=== PATIENT | male | born 1965 | race Caucasian/White ===

== ENCOUNTER 2017-09-27 19:11 | Emergency (ER) | payer OTHER ==
[2017-09-27 19:46] VITALS: BP 115/75; PULSE 80; RESP 20; TEMP 98; O2SAT 98
[2017-09-27] MEDS: Dexamethasone 4 mg/1 ml IM STA (20:29)
[2017-09-27] MEDS ORDERED: Dexamethasone 4 mg/1 ml ONE (20:30)
--- NOTE | 2017-09-27 21:01 | C.PDOC ---
History Of Present Illness 52 y/o male presents to the ED with left-sided shoulder pain for the past 4 days. Reports the pain starts from the posterior neck and radiates down the left arm. Pain worsens with movement and is described as sharp. [place]. He denies any chest pain, SOB, numbness, weakness, or tingling. Time Seen by Provider: 09/27/17 19:50 Chief Complaint (Nursing): Upper Extremity Problem/Injury History Per: Patient History/Exam Limitations: no limitations Onset/Duration Of Symptoms: Days Current Symptoms Are (Timing): Still Present Quality: Sharp Exacerbating Factor(s): Movement Past Medical History Reviewed: Historical Data, Nursing Documentation, Vital Signs Vital Signs: Last Vital Signs Temp 98 F 09/27/17 19:42 Pulse 80 09/27/17 19:42 Resp 20 09/27/17 21:27 BP 115/75 09/27/17 19:42 Pulse Ox 98 09/27/17 21:21 - Medical History PMH: HTN Family History: States: No Known Family Hx - Social History Hx Alcohol Use: No Hx Substance Use: No Review Of Systems Except As Marked, All Systems Reviewed And Found Negative. Cardiovascular: Negative for: Chest Pain Respiratory: Negative for: Shortness of Breath Musculoskeletal: Positive for: Neck Pain, Shoulder Pain, Arm Pain Neurological: Negative for: Weakness, Numbness, Other (tingling) Physical Exam - Physical Exam Appears: Non-toxic, No Acute Distress Skin: Normal Color, Warm, Dry Head: Atraumatic, Normacephalic Eye(s): bilateral: Normal Inspection Oral Mucosa: Moist Neck: No Midline Cervical Tenderness, Paracervical Tenderness (Left-sided paracervical tenderness and spasm), Supple Chest: Symmetrical Cardiovascular: Rhythm Regular, No Murmur Respiratory: Normal Breath Sounds, No Rales, No Rhonchi, No Wheezing Extremity: Normal ROM (with full ROM of the left shoulder and elbow), No Tenderness, Capillary Refill (< 2 sec), No Deformity, No Swelling Pulses: Left Radial: Normal, Right Radial: Normal Neurological/Psych: Oriented x3, Normal Speech, Normal Motor, Normal Sensation Gait: Steady ED Course And Treatment O2 Sat by Pulse Oximetry: 98 (RA) Pulse Ox Interpretation: Normal - Other Rad C-spine X-Ray X-Ray: Interpreted by Me, Viewed By Me Interpretation: (-) fracture or acute bony abnormality Medical Decision Making Medical Decision Making: Plan: --Cervical spine x-ray --Toradol 30 mg IM --Decadron 4 mg IM --Reassessment and disposition On re-exam, the patient reports improvement of symptoms. Lungs are CTA, heart is RRR, abdomen is soft, non-tender and tolerating Po well. Follow up with the medical doctor within 1-2 days without fail. Return if worsened. Disposition - Disposition Referrals: Mason Howard MD [Non-Staff] - Disposition: HOME/ ROUTINE Disposition Time: 21:18 Condition: STABLE Additional Instructions: Follow up with the medical doctor within 1-2 days without fail. Return if worsened. Prescriptions: Cyclobenzaprine [Flexeril] 5 mg PO TID #21 tab Naproxen [Naprosyn] 500 mg PO BID #20 tab Instructions: Cervical Muscle Strain (DC) Forms: [facility] ([place]), Work Excuse - Clinical Impression Clinical Impression: Cervical radiculopathy - PA / [employer] / Resident Statement MD/DO has reviewed & agrees with the documentation as recorded. - Scribe Statement The provider has reviewed the documentation as recorded by the Scribe (Maria Teresa Hoskins) All medical record entries made by the Scribe were at my direction and personally dictated by me. I have reviewed the chart and agree that the record accurately reflects my personal performance of the history, physical exam, medical decision making, and the department course for this patient. I have also personally directed, reviewed, and agree with the discharge instructions and disposition.
--- NOTE | 2017-09-28 21:00 | RAD ---
Date of service: 09/27/2017 PROCEDURE: Cervical Spine Radiographs. HISTORY: Pain. COMPARISON: None. FINDINGS: BONES: Alignment maintained. No fracture. Dens Intact. DISC SPACES: Multiple moderate to mildly severe degenerative disc and endplate changes noted. SOFT TISSUES: Normal. No prevertebral soft tissue swelling. OTHER FINDINGS: None. IMPRESSION: Moderate to mildly severe degenerative changes and multilevel osteophyte formation seen. If clinically warranted further assessment by CT may be obtained.
== END 2017-09-27 21:26 | disposition home or self-care (01) ==
LOC: C.ER 19:11
DX: M54.12 Radiculopathy, cervical region (principal); I10 Essential (primary) hypertension
CPT/HCPCS: 72040; 96372; 99284; J1100; J1885

== ENCOUNTER 2017-10-02 19:08 | Emergency (ER) | payer OTHER ==
[2017-10-02 19:23] VITALS: RESP 20
--- NOTE | 2017-10-02 20:53 | C.PDOC ---
History Of Present Illness 52 year old male with PMHx of HTN and DM presents to the ED for evaluation after collapsing at work. Patient reports that during work he felt weak and his legs gave out. Patient states he slowly fell to the floor. Patient was recently seen in the ED on 09/27/17 for left sided neck and shoulder pain radiating down to his left arm. 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 Patient was prescribed naproxen and flexeril. He reports taking it today in the morning and afternoon. Patient states he took an extra dose of the "pain killer" and is concerned that he may have overdosed. . Patient still c/o persistent left sided neck pain radiating to his left arm. Contrary to triage patient denies LOC. Patient denies LOC, seizure activity, CP, SOB, nausea, vomit, weakness, numbness , abdominal pain. Time Seen by Provider: 10/02/17 20:32 Chief Complaint (Nursing): Upper Extremity Problem/Injury History Per: Patient History/Exam Limitations: no limitations Onset/Duration Of Symptoms: Hrs Current Symptoms Are (Timing): Still Present Quality: "Pain" Recent travel outside of the [facility]: No Additional History Per: Patient Past Medical History Reviewed: Historical Data, Nursing Documentation, Vital Signs Vital Signs: Last Vital Signs Temp 98 F 10/02/17 19:20 Pulse 86 10/02/17 19:20 Resp 20 10/02/17 19:20 BP 123/78 10/02/17 19:20 Pulse Ox 97 10/02/17 21:01 - Medical History PMH: Arthritis, HTN Surgical History: No Surg Hx Family History: States: Unknown Family Hx - Social History Hx Alcohol Use: No Hx Substance Use: No - Immunization History Hx Tetanus Toxoid Vaccination: No Hx Influenza Vaccination: No Hx Pneumococcal Vaccination: No Review Of Systems Constitutional: Negative for: Fever, Chills Cardiovascular: Negative for: Chest Pain, Palpitations Respiratory: Negative for: Cough, Shortness of Breath Gastrointestinal: Negative for: Nausea, Vomiting, Abdominal Pain Musculoskeletal: Positive for: Neck Pain, Arm Pain Skin: Negative for: Rash Neurological: Positive for: Dizziness. Negative for: Weakness, Numbness, Headache Physical Exam - Physical Exam Appears: Non-toxic, No Acute Distress Skin: Normal Color, Warm, Dry Head: Atraumatic, Normacephalic Eye(s): bilateral: Normal Inspection Oral Mucosa: Moist Neck: Normal ROM, No Midline Cervical Tenderness, Paracervical Tenderness (mild left sided ), Supple Chest: Symmetrical Cardiovascular: Rhythm Regular Respiratory: Normal Breath Sounds, No Rales, No Rhonchi, No Wheezing Gastrointestinal/Abdominal: Soft, No Tenderness, No Guarding, No Rebound Back: Normal Inspection Extremity: Normal ROM, No Tenderness, Capillary Refill (< 2 seconds), No Swelling Pulses: Left Radial: Normal, Right Radial: Normal Neurological/Psych: Oriented x3, Normal Speech, Normal Cognition, Normal Motor ( 5/5 strenght on upper and lower extremities ), Normal Sensation Gait: Steady ED Course And Treatment - Laboratory Results Result Diagrams: 10/02/17 21:17 10/02/17 21:17 Lab Interpretation: No Acute Changes ECG: Interpreted By Me ECG Rhythm: Sinus Rhythm ECG Interpretation: Normal O2 Sat by Pulse Oximetry: 97 (ON RA) Pulse Ox Interpretation: Normal Reevaluation Time: 21:47 Reassessment Condition: Unchanged Medical Decision Making Medical Decision Making: Plan: * EKG * LAbs Disposition Counseled Patient/Family Regarding: Studies Performed, Diagnosis, Need For Followup - Disposition Referrals: Orlin Armstrong MD [Staff Provider] - Disposition: HOME/ ROUTINE Disposition Time: 21:50 Condition: STABLE Instructions: Generalized Weakness, Weakness (ED) Forms: [facility] (Lebanese) - Clinical Impression Clinical Impression: Weakness - Scribe Statement The provider has reviewed the documentation as recorded by the Scribe Milo Camargo All medical record entries made by the Scribe were at my direction and personally dictated by me. I have reviewed the chart and agree that the record accurately reflects my personal performance of the history, physical exam, medical decision making, and the department course for this patient. I have also personally directed, reviewed, and agree with the discharge instructions and disposition.
[2017-10-02 21:26] LABS: BASO # 0.1 K/uL (0.0-0.2); BASO % 0.6 % (0.0-2.0); EOS # 0.3 K/uL (0.0-0.7); EOS % 2.4 % (0.0-4.0); HEMOGLOBIN 12.2 g/dL (12.0-18.0); LYMPH # 4.5 K/uL (1.0-4.3); LYMPH % 40.9 % (20.0-40.0); MEAN CELL VOLUME 79.2 fL (80.0-94.0); MEAN CORPUSCULAR HEMOGLOBIN 27.2 pg (27.0-31.0); MEAN CORPUSCULAR HGB CONC 34.3 g/dL (33.0-37.0); MEAN PLATELET VOLUME 8.8 fL (7.2-11.7); MONO # 0.7 K/uL (0.0-0.8); MONO % 6.5 % (0.0-10.0); NEUT # 5.5 K/uL (1.8-7.0); NEUT % 49.6 % (50.0-75.0); NRBC % 0.2 % (0.0-2.0); RBC 4.5 Mil/uL (4.40-5.90); RED CELL DISTRIBUTION WIDTH 13.7 % (11.5-14.5); WHITE BLOOD COUNT 11.1 K/uL (4.8-10.8)
[2017-10-02 21:37] LABS: BLOOD UREA NITROGEN 16 mg/dL (9-20); CALCIUM 9.4 mg/dl (8.6-10.4); GFR AFRICAN-AMERICAN > 60; GFR NON-AFRICAN AMERICAN > 60
[2017-10-02 21:38] LABS: ALB/GLOB RATIO 1.4 (1.0-2.1); ALT/SGPT 39 U/L (21-72); AST/SGOT 24 U/L (17-59)
[2017-10-02 22:05] VITALS: BP 127/79; PULSE 78; TEMP 97.5; O2SAT 99
== END 2017-10-02 22:05 | disposition home or self-care (01) ==
LOC: C.ER 19:08
DX: R53.1 Weakness (principal); I10 Essential (primary) hypertension; E11.9 Type 2 diabetes mellitus without complications